=== PATIENT | female | born 1980 | race Caucasian/White ===

== ENCOUNTER 2016-11-07 16:16 | Emergency (ER) | payer MEDICAID ==
[~2016-11-07] VITALS: Ht 167.6 cm; Wt 110.7 kg
[~2016-11-07 16:16] MED LIST: DIPH25CA83 PO; PRED20TA PO
[2016-11-07 16:31] VITALS: BP 132/70; PULSE 99; RESP 16; TEMP 97.6; O2SAT 96
--- NOTE | 2016-11-07 16:36 | NUR ---
Patient triaged and placed in waiting room. Patient appears in no acute distress at this time. Accompanied by , awaiting available bed, and MD notified of need for MSE.
--- NOTE | 2016-11-07 17:42 | NUR ---
Pt upset and states he does not want to wait. Apologized made them aware that I dont have an approximate wait time. Patient urged to wait for MD evaluation but states she will be fine to go home because he has kids at home.
== END 2016-11-07 17:42 | disposition left against medical advice (07) ==
LOC: SED 16:16
DX: R05 Cough (principal); R42 Dizziness and giddiness

== ENCOUNTER 2024-03-02 14:28 | Emergency (ER) | payer MEDICAID, OTHER ==
[~2024-03-02] VITALS: Ht 157.5 cm; Wt 82.6 kg
[2024-03-02 14:40] VITALS: BP_SYST 108; PULSE 85; RESP 18; TEMP 98.3; O2SAT 98
[2024-03-02] MEDS: NACL 0.9% 1,000 ML IV ONE ×2 (15:31→17:07)
[2024-03-02 15:42] LABS: ANION GAP 8 (5-15); CALCIUM 8.9 mg/dL (8.4-11.0); CARBON DIOXIDE 25 mmol/L (23-29); CHLORIDE 106 mmol/L (98-107); CREATININE 0.64 mg/dL (0.55-1.30); GFR AFRICAN AMERICAN 129 mL/min (>90); GFR NON AFRICAN-AMERICAN 107 mL/min (>90); GLUCOSE 123 mg/dL (74-106); POTASSIUM 3.6 mmol/L (3.5-5.1); SODIUM SERUM 139 mmol/L (136-145); UREA NITROGEN, BLOOD 14 mg/dL (8-21)
[2024-03-02 15:50] LABS: BASOPHILS % (AUTO) 0.5 % (0.0-2.0); EOSINOPHILS # (AUTO) 0.1 K/uL (0.0-0.4); EOSINOPHILS % (AUTO) 0.9 % (0.0-4.0); HEMATOCRIT 38.5 % (36-48); HEMOGLOBIN 12.6 g/dL (12.0-16.0); LYMPHOCYTES # (AUTO) 1.9 K/uL (1.0-5.5); LYMPHOCYTES % (AUTO) 31.9 % (20.5-51.5); MEAN CORPUSCULAR HEMOGLOBIN 26 pg (27-31); MEAN CORPUSCULAR HGB CONC 33 % (32-36); MEAN CORPUSCULAR VOLUME 78 fL (79.0-98.0); MONOCYTES # (AUTO) 0.4 K/uL (0.0-1.0); MONOCYTES % (AUTO) 5.9 % (1.7-9.3); NEUTROPHILS # (AUTO) 3.7 K/uL (1.8-7.7); NEUTROPHILS % (AUTO) 60.8 % (40.0-70.0); PLATELET COUNT (AUTO) 299 K/uL (130-430); RED BLOOD CELL COUNT(AUTO) 4.93 MIL/uL (4.2-6.2); RED CELL DISTRIBUTION WIDTH 14.3 % (9.0-15.0)
[2024-03-02 17:12] LABS: INFLUENZA TYPE A Negative (NEGATIVE); INFLUENZA TYPE B NEGATIVE (NEGATIVE)
[2024-03-02 17:51] VITALS: BP_SYST 108; PULSE 85; RESP 18; TEMP 98.3; O2SAT 98
== END 2024-03-02 17:51 | disposition home or self-care (01) ==
LOC: SED 14:28
DX: R07.89 Other chest pain (principal); M94.0 Chondrocostal junction syndrome [Tietze]; Z20.822 Contact with and (suspected) exposure to COVID-19; Z79.899 Other long term (current) drug therapy; Z79.2 Long term (current) use of antibiotics
CPT/HCPCS: 99285; 96360; 71045; 96361; 87426; 80048; 83880; 85025; 85379; 84484; 36415; 93005; 87804 ×2; J7030